=== PATIENT | female | born 1945 | race Caucasian/White ===

== ENCOUNTER 2018-07-29 15:19 | Inpatient (IN) | payer MEDICARE, BC ==
[2018-07-29 16:18] LABS: HEMATOCRIT 29.4 % (41.0-60); HEMOGLOBIN 9.7 gm/dL (12-16); INR 1.19 (0.5-1.4); LYMPHOCYTE ABSOLUTE 0.1 Th/cmm (1.5-3.0); MEAN CELL VOLUME 94.9 fl (81-100); MEAN CORPUSCULAR HEMOGLOBIN 31.2 pg (27.0-31.0); MEAN CORPUSCULAR HGB CONC 32.9 pg (28.0-36.0); MEAN PLATELET VOLUME 8.4 fl; MONOCYTE ABSOLUTE 0.2 Th/cmm (0.3-1.0); NEUTROPHILE ABSOLUTE 9.5 Th/cmm (1.8-8.0); PLATELET COUNT 51 Th/cmm (150-400); PROTHROMBIN TIME (TEST) 12.3 SECONDS (9.5-11.5); RED BLOOD COUNT 3.09 Mil/cmm (3.80-5.20); RED CELL DISTRIBUTION WIDTH 17.8 % (11.5-20.0); WHITE BLOOD COUNT 9.8 Th/cmm (4.8-10.8)
[2018-07-29 16:19] LABS: % EOSINOPHILS 0.4 % (0.0-5.0); % LYMPHOCYTES 1.5 % (20.0-50.0); % MONOCYTES 1.6 % (2.0-10.0); % NEUTROPHILS 96.5 % (40.0-80.0)
--- NOTE | 2018-07-29 16:23 | ED Physician Chart ---
ED Chief Complaint/HPI - Patient Information Date Seen:: 07/29/18 Time Seen:: 15:26 Chief Complaint:: low blood pressure History of Present Illness:: this is a chronically ill 72 yr old female from home bib her daughter for an evaluation of her low blood pressure. she currently going to the [facility] for chemotherapy. Allergies:: Allergies Allergy/AdvReac Type Severity Reaction Status Date / Time No Known Allergies Allergy Verified 07/29/18 15:33 Vitals:: Vital Signs - 8 hr 07/29/18 07/29/18 15:34 16:15 Temp 96.6 F 96.3 F HR 92 95 RR 17 19 BP 97/48 97/56 O2 Sat % 97 98 Historian:: Patient, Family Member (daughter) Review:: Nurse's Note Reviewed, Transfer documents Reviewed ED Review of Systems - Review of Systems General/Constitutional: No fever, No chills, Weight loss, Weakness, No diaphoresis, No edema, No loss of appetite Skin: No skin lesions, No rash, No bruising Head: No headache, No light-headedness Eyes: No loss of vision, No pain, No diplopia ENT: No earache, No nasal drainage, No sore throat, No tinnitus Neck: No neck pain, No swelling, No thyromegaly, No stiffness, No mass noted Cardio Vascular: No chest pain, No palpitations, No PND, No orthopnea, No edema Pulmonary: No SOB, No cough, No sputum, No wheezing GI: No nausea, No vomiting, No diarrhea, No pain, No melena, No hematochezia, No constipation, No hematemesis G/U: No dysuria, No frequency, No hematuria Musculoskeletal: No bone or joint pain, Back pain, No muscle pain, Other (left lower leg edema) Endocrine: No polyuria, No polydipsia Psychiatric: No prior psych history, No depression, No anxiety, No suicidal ideation Hematopoietic: No bruising, No lymphadenopathy Allergic/Immuno: No urticaria, No angioedema Neurological: No syncope, No focal symptoms, No weakness, No paresthesia, No headache, No seizure, No dizziness, No confusion, No vertigo ED Past Medical History - Past Medical History Obtainable: Yes Past Medical History: HTN, Other (multiple erin cancer) Family History: None Social History: Non Smoker, No Alcohol, No Drug Use, Surgical History: other (tonsils, fibroid surgery and pic line placement) Family Medical History - Family Member Mother History Unknown: Yes ED Physical Exam - Physical Examination General/Constitutional: Awake, Well-developed, well-nourished, Alert, No distress, GCS 15, Non-toxic appearing, Ambulatory Other Gen/Cons comments:: lethargic and weak looking Head: Atraumatic Eyes: Lids, conjuctiva normal, PERRL, EOMI Skin: Nl inspection, No rash, No skin lesions, No ecchymosis, Well hydrated, No lymphadenopathy ENMT: External ears, nose nl, Nasal exam nl, Lips, teeth, gums nl Neck: Nontender, Full ROM w/o pain, No JVD, No nuchal rigidity, No bruit, No mass, No stridor Respiratory: Nl effort/Exclusion, Clear to Auscultation, No Wheeze/Rhonchi/Rales Cardio Vascular: RRR, No murmur, gallop, rubs, NL S1 S2 Other Cardio Vascular comments:: medication line in the anterior chest wall. GI: No tenderness/rebounding/guarding, No organomegaly, No hernia, Normal BS's, Nondistended, No mass/bruits, No McBurney tenderness : No CVA tenderness Extremities: No tenderness or effusion, Full ROM, normal strength in all extremities, No edema, Normal digits & nails Neuro/Psych: Alert/oriented, DTR's symmetric, Normal sensory exam, Normal motor strength, Judgement/insight normal, Mood normal, Normal gait, No focal deficits Misc: Normal back, No paraspinal tenderness ED Labs/Radiology/EKG Results - Lab Results Results: Abnormal Lab Results 07/29/18 07/29/18 07/29/18 15:45 15:45 15:45 WBC 9.8 RBC 3.09 L Hgb 9.7 L Hct 29.4 L MCV 94.9 MCH 31.2 H MCHC Differential 32.9 RDW 17.8 Plt Count 51 L MPV 8.4 Neutrophils % 96.5 H Lymphocytes % 1.5 L Monocytes % 1.6 L Eosinophils % 0.4 Basophils % 0.0 PT 12.3 H INR 1.19 PTT (Actin FS) 30.1 Sodium Potassium Chloride Carbon Dioxide Anion Gap BUN Creatinine Est GFR ( Amer) Est GFR (Non-Af Amer) BUN/Creatinine Ratio Glucose Calcium Total Bilirubin AST ALT Alkaline Phosphatase Total Protein Albumin Globulin Albumin/Globulin Ratio Triglycerides 246 H Cholesterol 173 LDL Cholesterol Direct 60 L HDL Cholesterol 39 07/29/18 15:45 WBC RBC Hgb Hct MCV MCH MCHC Differential RDW Plt Count MPV Neutrophils % Lymphocytes % Monocytes % Eosinophils % Basophils % PT INR PTT (Actin FS) Sodium 139 Potassium 3.6 Chloride 109 H Carbon Dioxide 14.0 L Anion Gap 19.6 H BUN 66 H Creatinine 3.4 H Est GFR ( Amer) 17.2 Est GFR (Non-Af Amer) 14.2 BUN/Creatinine Ratio 19.4 Glucose 130 H Calcium 7.9 L Total Bilirubin 0.3 AST 28 ALT 7 Alkaline Phosphatase 105 H Total Protein 7.3 Albumin 2.7 L Globulin 4.6 Albumin/Globulin Ratio 0.6 L Triglycerides Cholesterol LDL Cholesterol Direct HDL Cholesterol - Radiology Results Results: chest x-ray = two area of masses noted. - EKG Interpretations EKG Time:: 15:34 Rate & Rhythm: rate =86, sinus Middleton: left axis ED Assessment - Assessment General Assessment: hypotension ED Septic Shock - . Is Septic Shock (SBP<90, OR Lactate>4 mmol\L) present?: No - <6hrs of presentation: Vital Signs: Vital Signs - 8 hr 07/29/18 07/29/18 15:34 16:15 Temp 96.6 F 96.3 F HR 92 95 RR 17 19 BP 97/48 97/56 O2 Sat % 97 98 ED Reassessment (Disposition) - Reassessment Reassessment Condition:: Unchanged - Diagnosis Diagnosis:: hypotension renal failure - Aftercare/Follow up Instructions Notes:: critical care 62 min - Patient Disposition Discharge/Transfer:: Acute Care w/in this hosp Admitted to:: Med/Surg Admitting Medical Physician:: John Paul Isaac Condition at Disposition:: Critical
[2018-07-29 16:26] LABS: ALB/GLOB RATIO 0.6 (1.0-1.8); ALBUMIN 2.7 gm/dL (3.7-5.3); ANION GAP 19.6 (7.0-16.0); BILIRUBIN,TOTAL 0.3 mg/dL (0.3-1.0); CALCIUM SERUM 7.9 mg/dL (8.6-10.3); CREATININE - SERUM 3.4 mg/dL (0.6-1.2); GFR AFRICAN-AMERICAN 17.2 ml/min (>90); GFR NON AFRICAN-AMERICAN 14.2 ml/min; POTASSIUM SERUM 3.6 mEq/L (3.5-5.1); TOTAL PROTEIN,SERUM 7.3 gm/dL (6.0-8.3)
[2018-07-29 16:28] LABS: CHOLESTEROL 173 mg/dL (<200); HDL -HIGH DENSITY LIPOPROTEIN 39 mg/dL (23-92); TRIGLYCERIDES 246 mg/dL (<150)
[2018-07-29] MEDS ORDERED: Sodium Chloride 0.9% 1,000 ML IV ONE (16:33)
[2018-07-29] MEDS ORDERED: Potassium Chloride Elixir 20 mEq /15 mL UDC PO ONE (17:21)
[2018-07-29] MEDS ORDERED: Potassium Chloride 20 mEq ER Tab PO ONE (17:24)
[2018-07-29] MEDS ORDERED: Potassium Chloride Elixir 20 mEq /15 mL UDC ONE (17:26)
[2018-07-29 18:57] LABS: pH 7.374 (7.35-7.45)
[2018-07-29 18:58] LABS: PaCO2 19.2 mmHg (35.0-45.0); PaO2 106.9 mmHg (80.0-100.0)
[2018-07-29 18:59] LABS: ALLEN TEST Positive; sO2c 97.9 % (92.0-100.0)
[2018-07-29] MEDS ORDERED: Norepinephrine 4 mg/4mL Vial IV ONE (20:03)
[2018-07-29] MEDS ORDERED: ONDANSETRON 8 MG PO PRN (21:59)
[2018-07-29] MEDS ORDERED: [UNRECOGNIZED DRUG - OTHER] MM PRN (21:59)
[2018-07-29] MEDS ORDERED: Hydrocodone/APAP 5mg/325mg Tab PO PRN (21:59)
[2018-07-30 06:38] LABS: HEMATOCRIT 32.9 % (41.0-60); HEMOGLOBIN 10.6 gm/dL (12-16); MEAN CELL VOLUME 96.3 fl (81-100); MEAN CORPUSCULAR HEMOGLOBIN 30.9 pg (27.0-31.0); MEAN CORPUSCULAR HGB CONC 32.1 pg (28.0-36.0); MEAN PLATELET VOLUME 8.7 fl; PLATELET COUNT 50 Th/cmm (150-400); RED BLOOD COUNT 3.42 Mil/cmm (3.80-5.20); RED CELL DISTRIBUTION WIDTH 18.6 % (11.5-20.0); WHITE BLOOD COUNT 11.4 Th/cmm (4.8-10.8)
[2018-07-30 06:51] LABS: ALB/GLOB RATIO 0.6 (1.0-1.8); ALBUMIN 2.5 gm/dL (3.7-5.3); ANION GAP 20.5 (7.0-16.0); BILIRUBIN,TOTAL 0.3 mg/dL (0.3-1.0); CALCIUM SERUM 7.6 mg/dL (8.6-10.3); CARBON DIOXIDE 10.2 mEq/L (21.0-31.0); CREATININE - SERUM 3.2 mg/dL (0.6-1.2); GFR AFRICAN-AMERICAN 18.4 ml/min (>90); GFR NON AFRICAN-AMERICAN 15.2 ml/min; POTASSIUM SERUM 3.7 mEq/L (3.5-5.1); TOTAL PROTEIN,SERUM 6.9 gm/dL (6.0-8.3)
[2018-07-30 07:52] LABS: BAND NEUTROPHILE 5 % (0-10); LYMPHOCYTE 3 % (20-50); MONOCYTE 4 % (2-10); NEUTROPHILS 88 % (40-80); PLATELET ESTIMATE DECREASED PLATELETS (NORMAL); POIKILOCYTOSIS 1+
--- NOTE | 2018-07-30 08:27 | Diagnostic Imaging Report ---
Portable chest x-ray HISTORY: Pain The overall heart size is difficult to assess with portable technique in a poor inspiration. Accentuation of the interstitial lung markings. However, no focal processes are seen. A vascular catheter tip is in the region of the superior vena cava. Diffuse degenerative changes seen throughout the spine. IMPRESSION: 1. Accentuation of the interstitial lung markings. Findings may be chronic. No definite acute focal processes are seen. 2. Vascular catheter placement as noted above
[2018-07-30] MEDS ORDERED: FEBUXOSTAT 80 MG PO SCH (09:00)
[2018-07-30] MEDS ORDERED: ALPHA LIPOIC ACID 200 MG PO SCH (09:00)
[2018-07-30] MEDS ORDERED: Non-Formulary Item 1 EA (Omeprazole [Omeprazole] 40 MG) PO SCH (09:00)
[2018-07-30] MEDS ORDERED: DULOXETINE HYDROCHLORIDE PO SCH (09:00)
[2018-07-30] MEDS ORDERED: CYANOCOBALAMIN 1000 MCG PO SCH (09:00)
[2018-07-30] MEDS ORDERED: FOLIC ACID 1 MG PO SCH (09:00)
[2018-07-30] MEDS ORDERED: ACYCLOVIR 400 MG PO SCH (09:00)
[2018-07-30] MEDS: Pantoprazole 40 mg EC Tab PO SCH (09:14)
[2018-07-30] MEDS: Calcium Carb/Vit D 500 mg/200 U Tab PO SCH ×2 (09:14→16:53)
--- NOTE | 2018-07-30 14:30 | History and Physical ---
History of Present Illness - HPI Chief Complaint: Felling tired and with some confusion HPI: patient stated that she is in Chemotherapy since 2008 and after chemo she fells tired and get diarrhea. She got chemo last and this time she had a lot of diarrhea and felt so bad that came to ER. During ER evaluation was found low BP , dehydrated, elevated troponin, creatinine and BNP. Vital Signs: Last Vital Signs Temp 97.2 F 07/30/18 09:32 Pulse 85 07/30/18 11:32 Resp 16 07/30/18 11:32 BP 122/62 07/30/18 11:32 Pulse Ox 99 07/30/18 11:32 Past Medical History Cardiovascular: Report: No Pertinent Hx Pulmonary: Report: No Pertinent Hx [employer]: Report: No Pertinent Hx GI: Report: No Pertinent Hx Psych: Report: No Pertinent Hx Musculoskeletal: Report: Weakness Rheumatologic: Report: No pertinent Hx Infectious Disease: Report: No Pertinent Hx Renal/: Report: No Pertinent Hx Endocrine: Report: No Pertinent Hx, Other (Patient has PMHX of multiple Myeloma in chemotherapy since 2008) Dermatology: Report: No Pertinent Hx Family Medical History - Family Member Mother History Unknown: Yes Social History Smoke: No Alcohol: None Drugs: None Lives: With Family Domestic Violence: Negative - Medications Home Medications: Home Medication Medication Instructions Recorded Type Acyclovir 400 mg PO BID 03/20/14 History Cyanocobalamin [Vitamin B12] 1,000 mcg PO DAILY 03/20/14 History Duloxetine Hydrochloride [Cymbalta] 60 mg PO DAILY 03/20/14 History Folic Acid [Folic Acid*] 1 mg PO DAILY 03/20/14 History Gabapentin [Gabapentin*] 300 mg PO TID 03/20/14 History Alpha Lipoic Acid 200 mg PO BID 07/29/18 History Calcium Carb/Vit D 500mg/200U 1 tab PO BID 07/29/18 History [Oscal w/Vitamin D] Febuxostat [Uloric] 80 mg PO DAILY 07/29/18 History Hydrocodone/Acetaminophen 1 each PO Q6H PRN 07/29/18 History [Hydrocodone-Acetamin 5-325 mg] Lidocaine/Prilocaine [Lidocaine 1 cre TP PRN PRN 07/29/18 History and Prilocaine 2.5%-2.5%] Metoprolol Succinate [Toprol Xl] 50 mg PO DAILY 07/29/18 History Omeprazole 40 mg PO DAILY 07/29/18 History Ondansetron [Ondansetron Odt] 8 mg PO Q8H PRN 07/29/18 History Potassium/Calcium/Magnes/Manga 1 each PO PRN PRN 07/29/18 History [Emergen-C Electro Mix Packet] Pyridoxine [Vitamin B6] 50 mg PO DAILY 07/29/18 History Saliva Substitute Comb No.10 1 each MM PRN PRN 07/29/18 History [Neutrasal] Sulfamethoxazole/Trimethoprim 1 tab PO BID 07/29/18 History [Sulfamethoxazole and Trimethoprim 800 mg-160 ] - Allergies Allergies/Adverse Reactions: Allergies Allergy/AdvReac Type Severity Reaction Status Date / Time No Known Allergies Allergy Verified 07/29/18 15:33 Review of Systems - Review of Systems Constitutional: Report: Weakness Eyes: Report: Other (Patient has bilateral cataract) ENT: Report: No Significant Respiratory: Report: No Significant Cardiovascular: Report: Orthopnea, Light Headedness Gastrointestinal: Report: Diarrhea Genitourinary: Report: No Significant Musculoskeletal: Report: Other (General muscle weakness.) Skin: Report: Other (Multiple scoriations in all body) Neurological: Report: Weakness Physical Exam - Physical Exam HEENT: Report: Ears Nose Throat within normal limits Neck: Report: Within normal limits Cardiovascular Systems: Report: Regular, Rate and Rhythm Respiratory: Report: Breath Sounds are within normal limits Abdomen: Report: Non-tender to palpation Back: Report: Inspection of back is within normal limits. Extremities: Report: Non-tender to palpation. Skin: Report: Warm, Dry Neuro/Psych: Report: Mood affect is within normal limits - Lab Results All Lab Results last 24 hours: Laboratory Results - last 24 hr 07/29/18 07/29/18 07/29/18 15:45 15:45 15:45 WBC 9.8 RBC 3.09 L Hgb 9.7 L Hct 29.4 L MCV 94.9 MCH 31.2 H MCHC Differential 32.9 RDW 17.8 Plt Count 51 L MPV 8.4 Add Manual Diff Neutrophils % 96.5 H Band Neutrophils % Lymphocytes % 1.5 L Monocytes % 1.6 L Eosinophils % 0.4 Basophils % 0.0 Neutrophils (Manual) Lymphocytes Monocytes Platelet Estimate Poikilocytosis PT 12.3 H INR 1.19 PTT (Actin FS) 30.1 Specimen Source Sample Site pH pCO2 pO2 HCO3 Base Excess O2 Saturation Massimo Test Vent Rate Inspired O2 Tidal Volume PEEP Pressure (ins/psv/peep) Critical Value Sodium Potassium Chloride Carbon Dioxide Anion Gap BUN Creatinine Est GFR ( Amer) Est GFR (Non-Af Amer) BUN/Creatinine Ratio Glucose Whole Bld Lactic Acid Calcium Total Bilirubin AST ALT Alkaline Phosphatase Ammonia Troponin I B-Natriuretic Peptide Total Protein Albumin Globulin Albumin/Globulin Ratio Triglycerides 246 H Cholesterol 173 LDL Cholesterol Direct 60 L HDL Cholesterol 39 TSH 07/29/18 07/29/18 07/29/18 15:45 15:45 15:45 WBC RBC Hgb Hct MCV MCH MCHC Differential RDW Plt Count MPV Add Manual Diff Neutrophils % Band Neutrophils % Lymphocytes % Monocytes % Eosinophils % Basophils % Neutrophils (Manual) Lymphocytes Monocytes Platelet Estimate Poikilocytosis PT INR PTT (Actin FS) Specimen Source Sample Site pH pCO2 pO2 HCO3 Base Excess O2 Saturation Massimo Test Vent Rate Inspired O2 Tidal Volume PEEP Pressure (ins/psv/peep) Critical Value Sodium 139 Potassium 3.6 Chloride 109 H Carbon Dioxide 14.0 L Anion Gap 19.6 H BUN 66 H Creatinine 3.4 H Est GFR ( Amer) 17.2 Est GFR (Non-Af Amer) 14.2 BUN/Creatinine Ratio 19.4 Glucose 130 H Whole Bld Lactic Acid Calcium 7.9 L Total Bilirubin 0.3 AST 28 ALT 7 Alkaline Phosphatase 105 H Ammonia Troponin I 0.25 H* B-Natriuretic Peptide Total Protein 7.3 Albumin 2.7 L Globulin 4.6 Albumin/Globulin Ratio 0.6 L Triglycerides Cholesterol LDL Cholesterol Direct HDL Cholesterol TSH 2.13 07/29/18 07/29/18 07/29/18 15:45 15:45 15:45 WBC RBC Hgb Hct MCV MCH MCHC Differential RDW Plt Count MPV Add Manual Diff Neutrophils % Band Neutrophils % Lymphocytes % Monocytes % Eosinophils % Basophils % Neutrophils (Manual) Lymphocytes Monocytes Platelet Estimate Poikilocytosis PT INR PTT (Actin FS) Specimen Source Sample Site pH pCO2 pO2 HCO3 Base Excess O2 Saturation Massimo Test Vent Rate Inspired O2 Tidal Volume PEEP Pressure (ins/psv/peep) Critical Value Sodium Potassium Chloride Carbon Dioxide Anion Gap BUN Creatinine Est GFR ( Amer) Est GFR (Non-Af Amer) BUN/Creatinine Ratio Glucose Whole Bld Lactic Acid 1.75 Calcium Total Bilirubin AST ALT Alkaline Phosphatase Ammonia 26 Troponin I B-Natriuretic Peptide 816.0 H Total Protein Albumin Globulin Albumin/Globulin Ratio Triglycerides Cholesterol LDL Cholesterol Direct HDL Cholesterol TSH 07/29/18 07/30/18 07/30/18 18:40 06:15 06:15 WBC 11.4 H RBC 3.42 L Hgb 10.6 L Hct 32.9 L MCV 96.3 MCH 30.9 MCHC Differential 32.1 RDW 18.6 Plt Count 50 L MPV 8.7 Add Manual Diff YES Neutrophils % Band Neutrophils % 5 Lymphocytes % Monocytes % Eosinophils % Basophils % Neutrophils (Manual) 88 H Lymphocytes 3 L Monocytes 4 Platelet Estimate DECREASED PLATELETS Poikilocytosis 1+ PT INR PTT (Actin FS) Specimen Source Arterial Sample Site Right Brachial pH 7.374 pCO2 19.2 L* pO2 106.9 H HCO3 11.0 L Base Excess -11.5 L O2 Saturation 97.9 Massimo Test Positive Vent Rate NA Inspired O2 21 Tidal Volume NA PEEP NA Pressure (ins/psv/peep) NA Critical Value JG Sodium 138 Potassium 3.7 Chloride 111 H Carbon Dioxide 10.2 L Anion Gap 20.5 H BUN 71 H Creatinine 3.2 H Est GFR ( Amer) 18.4 Est GFR (Non-Af Amer) 15.2 BUN/Creatinine Ratio 22.2 Glucose 90 Whole Bld Lactic Acid Calcium 7.6 L Total Bilirubin 0.3 AST 28 ALT 7 Alkaline Phosphatase 100 Ammonia Troponin I B-Natriuretic Peptide Total Protein 6.9 Albumin 2.5 L Globulin 4.4 Albumin/Globulin Ratio 0.6 L Triglycerides Cholesterol LDL Cholesterol Direct HDL Cholesterol TSH 07/30/18 06:15 WBC RBC Hgb Hct MCV MCH MCHC Differential RDW Plt Count MPV Add Manual Diff Neutrophils % Band Neutrophils % Lymphocytes % Monocytes % Eosinophils % Basophils % Neutrophils (Manual) Lymphocytes Monocytes Platelet Estimate Poikilocytosis PT INR PTT (Actin FS) Specimen Source Sample Site pH pCO2 pO2 HCO3 Base Excess O2 Saturation Massimo Test Vent Rate Inspired O2 Tidal Volume PEEP Pressure (ins/psv/peep) Critical Value Sodium Potassium Chloride Carbon Dioxide Anion Gap BUN Creatinine Est GFR ( Amer) Est GFR (Non-Af Amer) BUN/Creatinine Ratio Glucose Whole Bld Lactic Acid Calcium Total Bilirubin AST ALT Alkaline Phosphatase Ammonia Troponin I 0.18 H* D B-Natriuretic Peptide Total Protein Albumin Globulin Albumin/Globulin Ratio Triglycerides Cholesterol LDL Cholesterol Direct HDL Cholesterol TSH - Assessment Assessment: Current Active Problems Problem Status Onset LOW BLOOD PRESSURE EPISODE Acute Patient is awake, alert, calm in no acute distress. Dx: Dehydration, Low BP, AKF , CHF, elevated troponins, Multiple Myeloma - Plan Plan: Patient is in IV NS, Levophed, continue with home meds. Consult with Nepho and cardio requested. Will continue to monitor.
--- NOTE | 2018-07-30 15:07 | General Progress Note ---
Subjective - Review of Systems Service Date: 07/30/18 Subjective: Patient is awake and alert still hypotension still loose bowel movement Objective - Results Result Diagrams: 07/30/18 06:15 07/30/18 06:15 Recent Labs: Laboratory Last Values WBC 11.4 Th/cmm (4.8-10.8) H 07/30/18 06:15 RBC 3.42 Mil/cmm (3.80-5.20) L 07/30/18 06:15 Hgb 10.6 gm/dL (12-16) L 07/30/18 06:15 Hct 32.9 % (41.0-60) L 07/30/18 06:15 MCV 96.3 fl (81-100) 07/30/18 06:15 MCH 30.9 pg (27.0-31.0) 07/30/18 06:15 MCHC Differential 32.1 pg (28.0-36.0) 07/30/18 06:15 RDW 18.6 % (11.5-20.0) 07/30/18 06:15 Plt Count 50 Th/cmm (150-400) L 07/30/18 06:15 MPV 8.7 fl 07/30/18 06:15 Add Manual Diff YES 07/30/18 06:15 Neutrophils % 96.5 % (40.0-80.0) H 07/29/18 15:45 Band Neutrophils % 5 % (0-10) 07/30/18 06:15 Lymphocytes % 1.5 % (20.0-50.0) L 07/29/18 15:45 Monocytes % 1.6 % (2.0-10.0) L 07/29/18 15:45 Eosinophils % 0.4 % (0.0-5.0) 07/29/18 15:45 Basophils % 0.0 % (0.0-2.0) 07/29/18 15:45 Neutrophils (Manual) 88 % (40-80) H 07/30/18 06:15 Lymphocytes 3 % (20-50) L 07/30/18 06:15 Monocytes 4 % (2-10) 07/30/18 06:15 Platelet Estimate DECREASED PLATELETS (NORMAL) 07/30/18 06:15 Poikilocytosis 1+ 07/30/18 06:15 PT 12.3 SECONDS (9.5-11.5) H 07/29/18 15:45 INR 1.19 (0.5-1.4) 07/29/18 15:45 PTT (Actin FS) 30.1 SECONDS (26.0-38.0) 07/29/18 15:45 Specimen Source Arterial 07/29/18 18:40 Sample Site Right Brachial 07/29/18 18:40 pH 7.374 (7.35-7.45) 07/29/18 18:40 pCO2 19.2 mmHg (35.0-45.0) L* 07/29/18 18:40 pO2 106.9 mmHg (80.0-100.0) H 07/29/18 18:40 HCO3 11.0 mEq/L (20.0-26.0) L 07/29/18 18:40 Base Excess -11.5 mEq/L (-3.0-3.0) L 07/29/18 18:40 O2 Saturation 97.9 % (92.0-100.0) 07/29/18 18:40 Massimo Test Positive 07/29/18 18:40 Vent Rate NA 07/29/18 18:40 Inspired O2 21 07/29/18 18:40 Tidal Volume NA 07/29/18 18:40 PEEP NA 07/29/18 18:40 Pressure (ins/psv/peep) NA 07/29/18 18:40 Critical Value JG 07/29/18 18:40 Sodium 138 mEq/L (136-145) 07/30/18 06:15 Potassium 3.7 mEq/L (3.5-5.1) 07/30/18 06:15 Chloride 111 mEq/L (98-107) H 07/30/18 06:15 Carbon Dioxide 10.2 mEq/L (21.0-31.0) L 07/30/18 06:15 Anion Gap 20.5 (7.0-16.0) H 07/30/18 06:15 BUN 71 mg/dL (7-25) H 07/30/18 06:15 Creatinine 3.2 mg/dL (0.6-1.2) H 07/30/18 06:15 Est GFR ( Amer) 18.4 ml/min (>90) 07/30/18 06:15 Est GFR (Non-Af Amer) 15.2 ml/min 07/30/18 06:15 BUN/Creatinine Ratio 22.2 07/30/18 06:15 Glucose 90 mg/dL (70-105) 07/30/18 06:15 Whole Bld Lactic Acid 1.75 mmol/L (0.60-1.99) 07/29/18 15:45 Calcium 7.6 mg/dL (8.6-10.3) L 07/30/18 06:15 Total Bilirubin 0.3 mg/dL (0.3-1.0) 07/30/18 06:15 AST 28 U/L (13-39) 07/30/18 06:15 ALT 7 U/L (7-52) 07/30/18 06:15 Alkaline Phosphatase 100 U/L (34-104) 07/30/18 06:15 Ammonia 26 umol/L (16-53) 07/29/18 15:45 Troponin I 0.18 ng/mL (0.01-0.05) H* D 07/30/18 06:15 B-Natriuretic Peptide 816.0 pg/mL (5.0-100.0) H 07/29/18 15:45 Total Protein 6.9 gm/dL (6.0-8.3) 07/30/18 06:15 Albumin 2.5 gm/dL (3.7-5.3) L 07/30/18 06:15 Globulin 4.4 gm/dL 07/30/18 06:15 Albumin/Globulin Ratio 0.6 (1.0-1.8) L 07/30/18 06:15 Triglycerides 246 mg/dL (<150) H 07/29/18 15:45 Cholesterol 173 mg/dL (<200) 07/29/18 15:45 LDL Cholesterol Direct 60 mg/dL (75-193) L 07/29/18 15:45 HDL Cholesterol 39 mg/dL (23-92) 07/29/18 15:45 TSH 2.13 uIU/ml (0.34-5.60) 07/29/18 15:45 - Physical Exam Vitals and I&O: Vital Signs Temp 98.3 F 07/30/18 12:00 Pulse 104 07/30/18 13:00 Resp 18 07/30/18 13:00 BP 121/71 07/30/18 13:00 Pulse Ox 99 07/30/18 13:00 Intake & Output 07/29/18 07/30/18 07/30/18 18:59 06:59 18:59 Weight (lbs) 74.389 kg Other: Stool Characteristics Liquid Weight Source Patient stated Active Medications: Current Medications Acetaminophen/Hydrocodone Bitart ([place] 5mg/325mg) 1 tab PO Q6H PRN PRN Reason: MODERATE PAIN Stop: 09/27/18 21:58 Acyclovir (Zovirax) 400 mg PO BID [facility] Stop: 09/28/18 08:59 Last Admin: 07/30/18 09:13 Dose: 400 mg Calcium/Vitamin D (Oscal W/Vitamin D) 1 tab PO BID [facility] Stop: 09/28/18 08:59 Last Admin: 07/30/18 09:14 Dose: 1 tab Cyanocobalamin (Vitamin B12) 1,000 mcg PO DAILY SWAP[facility] Stop: 09/28/18 08:59 Last Admin: 07/30/18 09:14 Dose: 1,000 mcg Duloxetine HCl (Cymbalta) 60 mg PO DAILY [facility] Stop: 09/28/18 08:59 Last Admin: 07/30/18 09:14 Dose: 60 mg Folic Acid (Folate) 1 mg PO DAILY [facility] Stop: 09/28/18 08:59 Last Admin: 07/30/18 09:14 Dose: 1 mg Gabapentin (Neurontin) 300 mg PO DAILY [facility] Stop: 09/28/18 08:59 Last Admin: 07/30/18 09:14 Dose: 300 mg Norepinephrine Bitartrate 4 mg (/ Dextrose) 254 mls @ 0 mls/hr IV TITR PRN; Protocol PRN Reason: BP MAINTENANCE (PER PROTOCOL) Stop: 09/27/18 20:01 Last Admin: 07/29/18 20:19 Dose: 5 mcg/min, 19.05 mls/hr Metoprolol Succinate (Toprol Xl) 50 mg PO DAILY [facility] Stop: 09/28/18 08:59 Last Admin: 07/30/18 09:14 Dose: Not Given Ondansetron HCl (Zofran Odt) 8 mg PO Q8H PRN PRN Reason: Nausea / Vomiting Stop: 09/27/18 22:50 Pantoprazole Sodium (Protonix) 40 mg PO DAILY [facility] Stop: 09/28/18 08:59 Last Admin: 07/30/18 09:14 Dose: 40 mg Pyridoxine HCl (Vitamin B6) 50 mg PO DAILY [facility] Stop: 09/28/18 08:59 Last Admin: 07/30/18 09:14 Dose: 50 mg General: Alert, Oriented x3, No acute distress HEENT: Mucous membr. moist/pink Neck: Supple, JVD, +2 carotid pulse wo bruit (flat) Cardiovascular: Regular rate, Normal S1, Normal S2, Systolic murmurs, Other ( tachycardia) Lungs: Clear to auscultation, Normal air movement Abdomen: Bowel sounds, Soft, Other (no organomegaly) Extremities: Edema Neurological: Normal gait, Strength at 5/5 X4 ext, Cranial nerves 3-12 NL, Reflexes 2+ Assessment/Plan - Problem List Patient Problems: All Active Problems LOW BLOOD PRESSURE EPISODE (Acute) - Assessment Assessment: Hypotension on Levophed Gastroenteritis secondary to chemotherapy Multiple myeloma Hypertension And deficiency anemia Acute renal failure - Plan Plan: Continue present management weaned off Levophed Echocardiogram for left ventricular function renal evaluation for acute renal failure Nutritional Asmnt/Malnutr-PDOC - Dietary Evaluation Malnutrition Findings (Please click <Entered> for more info): Nutritional Asmnt/Malnutrition Start: 07/30/18 09: 36 Text: Status: Complete Freq: Protocol: Document 07/30/18 09:36 [email or web address] (Rec: 07/30/18 09:45 [email or web address] [id number]) Nutritional Asmnt/Malnutrition Patient General Information Nutritional Screening High Risk Diagnosis Dehydration Pertinent Medical Hx/Surgical Hx GUILLIAM BARRE SYNDROME, OSTEONECROSIS, MULTIPLE MYELOMA Subjective Information 3+ edema. Tolerating current diet order Current Diet Order/ Nutrition Support Regular Patient / S.O Not Indicated Pertinent Medications Oscal W/D, Vitamin B12, folate , zofran, protonix, vitamin B6 Pertinent Labs (07/29) TAG 246 (07/30) BUN 71, Cr 3.2, GFR 15, Ca 7.6, BNP 816, Albumin 2.5 Nutritional Hx/Data Height 1.55 m Height (Calculated Centimeters) 154.9 Current Weight (lbs) 74.389 kg Weight (Calculated Kilograms) 74.4 Weight (Calculated Grams) 79156.1 Willard Body Weight 105 % Willard Body Weight 156 Body Mass Index (BMI) 30.9 Recent Weight Change No Weight Status Obese GI Symptoms GI Symptoms None Last BM none noted since admission Difficult in: None Food Allergies No Cultural/Ethnic/Confucianism Belief none indicated Usual diet at home regular Skin Integrity/Comment: not indicated, no H&P yet or lora score Estimated Nutritional Goals BEE in Kcals: Adj wt of IBW Calories/Kcals/Kg 54.4kg Adj wt Kcals Calculated ~2926-1907 kcal/day (27-32 kcal/kg) Protein: Adj wt of IBW Protein g/k.1-1.3 gm/kg Protein Calculated ~60-70 gm/day Fluid: ml ~3644-1417 ml/day (1 ml/kcal) Nutritional Problem 1. Problem Problem No nutrition diagnosis at this time Intervention/Recommendation Comments 1. Continue regular diet as tolerated by patient. 2. If oral intake is consistently <75% of meals, add Ensure TID. Expected Outcomes/Goals Expected Outcomes/Goals Oral intake >75% of meals, weight stable or trend toward IBW, nutrition related labs WNL F/U MR 08/02-08/04
[2018-07-30] MEDS ORDERED: Diphenoxylate/Atropine 2.5mg Tab PO PRN (16:35)
--- NOTE | 2018-07-30 23:02 | Consultation ---
DATE OF CONSULTATION: 07/30/2018 HISTORY AND PHYSICAL: This is a 72-year-old female patient who has multiple myeloma. The patient is getting chemotherapy at [facility]. The patient has been getting diarrhea whenever she gets chemotherapy. On this occasion, it did not get reverse and at this time, the patient came to the Emergency Room. The patient was hypotensive and the patient was put on Levophed and admitted to ICU. Following this, cardiac consult is requested. PAST MEDICAL HISTORY: 1. Diarrhea from chemotherapy. 2. Multiple myeloma. 3. Osteoporosis. 4. Hypertension. 5. Anemia. FAMILY HISTORY: Unremarkable. SOCIAL HISTORY: No history of smoking, alcohol abuse. ALLERGIES: None. PHYSICAL EXAMINATION: VITAL SIGNS: Blood pressure 92 systolic, on Levophed, pulse 90, and respirations 28. HEAD: Normocephalic. No lumps or bumps. EYES: Pupils equal, reactive to light. Fundi show AV nicking, sclerae white, conjunctivae pink. NECK: Carotid 2+. Normal upstroke. JVD flat. Thyroid not palpable. Lymph nodes not palpable. CHEST: Shows increased AP diameter. No kyphosis, scoliosis. LUNGS: Bilateral bronchovesicular breath sounds. HEART: PMI fifth intercostal space with lateral to midclavicular line. S1, S2, S3, S4, sinus tachycardia. ABDOMEN: Soft. Liver and spleen not palpable. No organomegaly. Bowel sounds active. NEUROLOGIC: No focal neurological deficit. EXTREMITIES: Peripheral pulses 2+. No pedal edema. CLINICAL IMPRESSION: Hypotension, probably secondary to severe diarrhea, on Levophed, iron deficiency anemia, multiple myeloma, acute renal failure, hypertension, and osteoporosis. PLAN: The patient to continue on IV fluids and Levophed. Also get an echocardiogram for left ventricular function and monitor the patient in Intensive Care Unit and slowly wean off the Levophed. JOB# [id number]
[2018-07-31 06:11] LABS: HEMATOCRIT 29.2 % (41.0-60); HEMOGLOBIN 9.8 gm/dL (12-16); LYMPHOCYTE ABSOLUTE 0.2 Th/cmm (1.5-3.0); MEAN CELL VOLUME 94.5 fl (81-100); MEAN CORPUSCULAR HEMOGLOBIN 31.6 pg (27.0-31.0); MEAN CORPUSCULAR HGB CONC 33.4 pg (28.0-36.0); MONOCYTE ABSOLUTE 0.3 Th/cmm (0.3-1.0); NEUTROPHILE ABSOLUTE 8.5 Th/cmm (1.8-8.0); PLATELET COUNT 37 Th/cmm (150-400); RED BLOOD COUNT 3.09 Mil/cmm (3.80-5.20); RED CELL DISTRIBUTION WIDTH 17.7 % (11.5-20.0)
[2018-07-31 06:31] LABS: ALB/GLOB RATIO 0.6 (1.0-1.8); ALBUMIN 2.4 gm/dL (3.7-5.3); BILIRUBIN,TOTAL 0.3 mg/dL (0.3-1.0); CALCIUM SERUM 7.1 mg/dL (8.6-10.3); CREATININE - SERUM 2.8 mg/dL (0.6-1.2); GFR AFRICAN-AMERICAN 21.5 ml/min (>90); GFR NON AFRICAN-AMERICAN 17.8 ml/min; TOTAL PROTEIN,SERUM 6.3 gm/dL (6.0-8.3)
[2018-07-31] MEDS: Pantoprazole 40 mg EC Tab PO SCH (08:35)
[2018-07-31] MEDS: Calcium Carb/Vit D 500 mg/200 U Tab PO SCH ×2 (08:35→17:50)
[2018-07-31] MEDS: Potassium Chloride 20 mEq ER Tab PO SCH ×2 (08:36→17:50)
[2018-07-31 08:47] LABS: BAND NEUTROPHILE 9 % (0-10); LYMPHOCYTE 4 % (20-50); MONOCYTE 7 % (2-10); NEUTROPHILS 80 % (40-80); PLATELET ESTIMATE DECREASED PLATELETS (NORMAL)
--- NOTE | 2018-07-31 11:33 | General Progress Note ---
Subjective - Review of Systems Service Date: 07/31/18 Subjective: I am better Objective - Results Result Diagrams: 07/31/18 06:00 07/31/18 06:00 Recent Labs: Laboratory Last Values WBC 9.0 Th/cmm (4.8-10.8) D 07/31/18 06:00 RBC 3.09 Mil/cmm (3.80-5.20) L 07/31/18 06:00 Hgb 9.8 gm/dL (12-16) L 07/31/18 06:00 Hct 29.2 % (41.0-60) L 07/31/18 06:00 MCV 94.5 fl (81-100) 07/31/18 06:00 MCH 31.6 pg (27.0-31.0) H 07/31/18 06:00 MCHC Differential 33.4 pg (28.0-36.0) 07/31/18 06:00 RDW 17.7 % (11.5-20.0) 07/31/18 06:00 Plt Count 37 Th/cmm (150-400) L 07/31/18 06:00 MPV 8.0 fl 07/31/18 06:00 Add Manual Diff YES 07/31/18 06:00 Neutrophils % 96.5 % (40.0-80.0) H 07/29/18 15:45 Band Neutrophils % 9 % (0-10) 07/31/18 06:00 Lymphocytes % 1.5 % (20.0-50.0) L 07/29/18 15:45 Monocytes % 1.6 % (2.0-10.0) L 07/29/18 15:45 Eosinophils % 0.4 % (0.0-5.0) 07/29/18 15:45 Basophils % 0.0 % (0.0-2.0) 07/29/18 15:45 Neutrophils (Manual) 80 % (40-80) 07/31/18 06:00 Lymphocytes 4 % (20-50) L 07/31/18 06:00 Monocytes 7 % (2-10) 07/31/18 06:00 Platelet Estimate DECREASED PLATELETS (NORMAL) 07/31/18 06:00 Poikilocytosis 1+ 07/30/18 06:15 PT 12.3 SECONDS (9.5-11.5) H 07/29/18 15:45 INR 1.19 (0.5-1.4) 07/29/18 15:45 PTT (Actin FS) 30.1 SECONDS (26.0-38.0) 07/29/18 15:45 Specimen Source Arterial 07/29/18 18:40 Sample Site Right Brachial 07/29/18 18:40 pH 7.374 (7.35-7.45) 07/29/18 18:40 pCO2 19.2 mmHg (35.0-45.0) L* 07/29/18 18:40 pO2 106.9 mmHg (80.0-100.0) H 07/29/18 18:40 HCO3 11.0 mEq/L (20.0-26.0) L 07/29/18 18:40 Base Excess -11.5 mEq/L (-3.0-3.0) L 07/29/18 18:40 O2 Saturation 97.9 % (92.0-100.0) 07/29/18 18:40 Massimo Test Positive 07/29/18 18:40 Vent Rate NA 07/29/18 18:40 Inspired O2 21 07/29/18 18:40 Tidal Volume NA 07/29/18 18:40 PEEP NA 07/29/18 18:40 Pressure (ins/psv/peep) NA 07/29/18 18:40 Critical Value JG 07/29/18 18:40 Sodium 138 mEq/L (136-145) 07/31/18 06:00 Potassium 3.0 mEq/L (3.5-5.1) L 07/31/18 06:00 Chloride 113 mEq/L (98-107) H 07/31/18 06:00 Carbon Dioxide 13.0 mEq/L (21.0-31.0) L 07/31/18 06:00 Anion Gap 15.0 (7.0-16.0) 07/31/18 06:00 BUN 71 mg/dL (7-25) H 07/31/18 06:00 Creatinine 2.8 mg/dL (0.6-1.2) H 07/31/18 06:00 Est GFR ( Amer) 21.5 ml/min (>90) 07/31/18 06:00 Est GFR (Non-Af Amer) 17.8 ml/min 07/31/18 06:00 BUN/Creatinine Ratio 25.4 07/31/18 06:00 Glucose 74 mg/dL (70-105) 07/31/18 06:00 Whole Bld Lactic Acid 1.75 mmol/L (0.60-1.99) 07/29/18 15:45 Calcium 7.1 mg/dL (8.6-10.3) L 07/31/18 06:00 Total Bilirubin 0.3 mg/dL (0.3-1.0) 07/31/18 06:00 AST 24 U/L (13-39) 07/31/18 06:00 ALT 7 U/L (7-52) 07/31/18 06:00 Alkaline Phosphatase 89 U/L (34-104) 07/31/18 06:00 Ammonia 26 umol/L (16-53) 07/29/18 15:45 Troponin I 0.19 ng/mL (0.01-0.05) H* 07/31/18 06:00 B-Natriuretic Peptide 322.0 pg/mL (5.0-100.0) H 07/31/18 06:00 Total Protein 6.3 gm/dL (6.0-8.3) 07/31/18 06:00 Albumin 2.4 gm/dL (3.7-5.3) L 07/31/18 06:00 Globulin 3.9 gm/dL 07/31/18 06:00 Albumin/Globulin Ratio 0.6 (1.0-1.8) L 07/31/18 06:00 Triglycerides 246 mg/dL (<150) H 07/29/18 15:45 Cholesterol 173 mg/dL (<200) 07/29/18 15:45 LDL Cholesterol Direct 60 mg/dL (75-193) L 07/29/18 15:45 HDL Cholesterol 39 mg/dL (23-92) 07/29/18 15:45 TSH 2.13 uIU/ml (0.34-5.60) 07/29/18 15:45 - Physical Exam Vitals and I&O: Vital Signs Temp 98.2 F 07/31/18 08:00 Pulse 89 07/31/18 09:15 Resp 20 07/31/18 09:00 BP 100/64 07/31/18 09:15 Pulse Ox 98 07/31/18 09:00 Intake & Output 07/30/18 07/31/18 07/31/18 18:59 06:59 18:59 Intake Total 337.909 11.43 Balance 337.909 11.43 Weight (lbs) 68.447 kg Intake: Intake, IV Amount 287.909 11.43 Norepinephrine 4 mg In 287.909 11.43 Dextrose 5% 250 ml @ Titrate IV TITR PRN Rx#: [id number] Oral 50 Other: # Voids 2 # Bowel Movements 1 Stool Characteristics Liquid Liquid Liquid Weight Source Bedscale Active Medications: Current Medications Acetaminophen/Hydrocodone Bitart ([place] 5mg/325mg) 1 tab PO Q6H PRN PRN Reason: MODERATE PAIN Stop: 09/27/18 21:58 Acyclovir (Zovirax) 400 mg PO BID [facility] Stop: 09/28/18 08:59 Last Admin: 07/31/18 08:35 Dose: 400 mg Calcium/Vitamin D (Oscal W/Vitamin D) 1 tab PO BID [facility] Stop: 09/28/18 08:59 Last Admin: 07/31/18 08:35 Dose: 1 tab Cyanocobalamin (Vitamin B12) 1,000 mcg PO DAILY [facility] Stop: 09/28/18 08:59 Last Admin: 07/31/18 08:35 Dose: 1,000 mcg Diphenoxylate HCl/Atropine (Lomotil) 2 tab PO QID PRN PRN Reason: Diarrhea Stop: 09/28/18 16:34 Last Admin: 07/30/18 16:52 Dose: 2 tab Duloxetine HCl (Cymbalta) 60 mg PO DAILY [facility] Stop: 09/28/18 08:59 Last Admin: 07/31/18 08:35 Dose: 60 mg Folic Acid (Folate) 1 mg PO DAILY [facility] Stop: 09/28/18 08:59 Last Admin: 07/31/18 08:35 Dose: 1 mg Gabapentin (Neurontin) 300 mg PO DAILY [facility] Stop: 09/28/18 08:59 Last Admin: 07/31/18 08:36 Dose: 300 mg Norepinephrine Bitartrate 4 mg (/ Dextrose) 254 mls @ 0 mls/hr IV TITR PRN; Protocol PRN Reason: BP MAINTENANCE (PER PROTOCOL) Stop: 09/27/18 20:01 Last Titration: 07/31/18 09:00 Dose: 0 mcg/min, 0 mls/hr Metoprolol Succinate (Toprol Xl) 50 mg PO DAILY [facility] Stop: 09/28/18 08:59 Last Admin: 07/31/18 08:36 Dose: Not Given Ondansetron HCl (Zofran Odt) 8 mg PO Q8H PRN PRN Reason: Nausea / Vomiting Stop: 09/27/18 22:50 Pantoprazole Sodium (Protonix) 40 mg PO DAILY [facility] Stop: 09/28/18 08:59 Last Admin: 07/31/18 08:35 Dose: 40 mg Potassium Chloride (Klor-Con) 20 meq PO BID [facility] Stop: 08/02/18 17:01 Last Admin: 07/31/18 08:36 Dose: 20 meq Pyridoxine HCl (Vitamin B6) 50 mg PO DAILY [facility] Stop: 09/28/18 08:59 Last Admin: 07/31/18 08:36 Dose: 50 mg General: Alert, Oriented x3, No acute distress HEENT: Mucous membr. moist/pink Neck: Supple, JVD, +2 carotid pulse wo bruit (flat) Cardiovascular: Regular rate, Normal S1, Normal S2 Lungs: Clear to auscultation, Normal air movement Abdomen: Bowel sounds, Soft, Other (no organomegaly) Extremities: Edema Neurological: Normal gait Skin: Other (Warm and dry) Psych/Mental Status: Mental status NL Assessment/Plan - Problem List Patient Problems: All Active Problems LOW BLOOD PRESSURE EPISODE (Acute) - Assessment Assessment: Current Active Problems Problem Status Onset LOW BLOOD PRESSURE EPISODE Acute Patient is awake, alert, calm in no acute distress. BNP and creatinine improved. Dx: Dehydration, Low BP, AKF, CHF, elevated troponins, Multiple Myeloma - Plan Plan: Patient is in IV NS, Levophed, continue with home meds. Patient follow by cardio, awaiting Nepho eval. Will continue to monitor. Nutritional Asmnt/Malnutr-PDOC - Dietary Evaluation Malnutrition Findings (Please click <Entered> for more info): Nutritional Asmnt/Malnutrition Start: 07/30/18 09: 36 Text: Status: Complete Freq: Protocol: Document 07/30/18 09:36 MMDARION (Rec: 07/30/18 09:45 MMDARION RUSSO- FN) Nutritional Asmnt/Malnutrition Patient General Information Nutritional Screening High Risk Diagnosis Dehydration Pertinent Medical Hx/Surgical Hx GUILLIAM BARRE SYNDROME, OSTEONECROSIS, MULTIPLE MYELOMA Subjective Information 3+ edema. Tolerating current diet order Current Diet Order/ Nutrition Support Regular Patient / S.O Not Indicated Pertinent Medications Oscal W/D, Vitamin B12, folate , zofran, protonix, vitamin B6 Pertinent Labs (07/29) TAG 246 (07/30) BUN 71, Cr 3.2, GFR 15, Ca 7.6, BNP 816, Albumin 2.5 Nutritional Hx/Data Height 1.55 m Height (Calculated Centimeters) 154.9 Current Weight (lbs) 74.389 kg Weight (Calculated Kilograms) 74.4 Weight (Calculated Grams) 82872.1 [place] Body Weight 105 % [place] Body Weight 156 Body Mass Index (BMI) 30.9 Recent Weight Change No Weight Status Obese GI Symptoms GI Symptoms None Last BM none noted since admission Difficult in: None Food Allergies No Cultural/Ethnic/Rastafarian Belief none indicated Usual diet at home regular Skin Integrity/Comment: not indicated, no H&P yet or lora score Estimated Nutritional Goals BEE in Kcals: Adj wt of IBW Calories/Kcals/Kg 54.4kg Adj wt Kcals Calculated ~0513-0534 kcal/day (27-32 kcal/kg) Protein: Adj wt of IBW Protein g/k.1-1.3 gm/kg Protein Calculated ~60-70 gm/day Fluid: ml ~2591-5720 ml/day (1 ml/kcal) Nutritional Problem 1. Problem Problem No nutrition diagnosis at this time Intervention/Recommendation Comments 1. Continue regular diet as tolerated by patient. 2. If oral intake is consistently <75% of meals, add Ensure TID. Expected Outcomes/Goals Expected Outcomes/Goals Oral intake >75% of meals, weight stable or trend toward IBW, nutrition related labs WNL F/U MR 08/02-08/04
--- NOTE | 2018-07-31 13:23 | General Progress Note ---
Subjective - Review of Systems Service Date: 07/31/18 Subjective: Patient is awake and alert still hypotension loose stools improved Objective - Results Result Diagrams: 07/31/18 06:00 07/31/18 06:00 Recent Labs: Laboratory Last Values WBC 9.0 Th/cmm (4.8-10.8) D 07/31/18 06:00 RBC 3.09 Mil/cmm (3.80-5.20) L 07/31/18 06:00 Hgb 9.8 gm/dL (12-16) L 07/31/18 06:00 Hct 29.2 % (41.0-60) L 07/31/18 06:00 MCV 94.5 fl (81-100) 07/31/18 06:00 MCH 31.6 pg (27.0-31.0) H 07/31/18 06:00 MCHC Differential 33.4 pg (28.0-36.0) 07/31/18 06:00 RDW 17.7 % (11.5-20.0) 07/31/18 06:00 Plt Count 37 Th/cmm (150-400) L 07/31/18 06:00 MPV 8.0 fl 07/31/18 06:00 Add Manual Diff YES 07/31/18 06:00 Neutrophils % 96.5 % (40.0-80.0) H 07/29/18 15:45 Band Neutrophils % 9 % (0-10) 07/31/18 06:00 Lymphocytes % 1.5 % (20.0-50.0) L 07/29/18 15:45 Monocytes % 1.6 % (2.0-10.0) L 07/29/18 15:45 Eosinophils % 0.4 % (0.0-5.0) 07/29/18 15:45 Basophils % 0.0 % (0.0-2.0) 07/29/18 15:45 Neutrophils (Manual) 80 % (40-80) 07/31/18 06:00 Lymphocytes 4 % (20-50) L 07/31/18 06:00 Monocytes 7 % (2-10) 07/31/18 06:00 Platelet Estimate DECREASED PLATELETS (NORMAL) 07/31/18 06:00 Poikilocytosis 1+ 07/30/18 06:15 PT 12.3 SECONDS (9.5-11.5) H 07/29/18 15:45 INR 1.19 (0.5-1.4) 07/29/18 15:45 PTT (Actin FS) 30.1 SECONDS (26.0-38.0) 07/29/18 15:45 Specimen Source Arterial 07/29/18 18:40 Sample Site Right Brachial 07/29/18 18:40 pH 7.374 (7.35-7.45) 07/29/18 18:40 pCO2 19.2 mmHg (35.0-45.0) L* 07/29/18 18:40 pO2 106.9 mmHg (80.0-100.0) H 07/29/18 18:40 HCO3 11.0 mEq/L (20.0-26.0) L 07/29/18 18:40 Base Excess -11.5 mEq/L (-3.0-3.0) L 07/29/18 18:40 O2 Saturation 97.9 % (92.0-100.0) 07/29/18 18:40 Massimo Test Positive 07/29/18 18:40 Vent Rate NA 07/29/18 18:40 Inspired O2 21 07/29/18 18:40 Tidal Volume NA 07/29/18 18:40 PEEP NA 07/29/18 18:40 Pressure (ins/psv/peep) NA 07/29/18 18:40 Critical Value JG 07/29/18 18:40 Sodium 138 mEq/L (136-145) 07/31/18 06:00 Potassium 3.0 mEq/L (3.5-5.1) L 07/31/18 06:00 Chloride 113 mEq/L (98-107) H 07/31/18 06:00 Carbon Dioxide 13.0 mEq/L (21.0-31.0) L 07/31/18 06:00 Anion Gap 15.0 (7.0-16.0) 07/31/18 06:00 BUN 71 mg/dL (7-25) H 07/31/18 06:00 Creatinine 2.8 mg/dL (0.6-1.2) H 07/31/18 06:00 Est GFR ( Amer) 21.5 ml/min (>90) 07/31/18 06:00 Est GFR (Non-Af Amer) 17.8 ml/min 07/31/18 06:00 BUN/Creatinine Ratio 25.4 07/31/18 06:00 Glucose 74 mg/dL (70-105) 07/31/18 06:00 Whole Bld Lactic Acid 1.75 mmol/L (0.60-1.99) 07/29/18 15:45 Calcium 7.1 mg/dL (8.6-10.3) L 07/31/18 06:00 Total Bilirubin 0.3 mg/dL (0.3-1.0) 07/31/18 06:00 AST 24 U/L (13-39) 07/31/18 06:00 ALT 7 U/L (7-52) 07/31/18 06:00 Alkaline Phosphatase 89 U/L (34-104) 07/31/18 06:00 Ammonia 26 umol/L (16-53) 07/29/18 15:45 Troponin I 0.19 ng/mL (0.01-0.05) H* 07/31/18 06:00 B-Natriuretic Peptide 322.0 pg/mL (5.0-100.0) H 07/31/18 06:00 Total Protein 6.3 gm/dL (6.0-8.3) 07/31/18 06:00 Albumin 2.4 gm/dL (3.7-5.3) L 07/31/18 06:00 Globulin 3.9 gm/dL 07/31/18 06:00 Albumin/Globulin Ratio 0.6 (1.0-1.8) L 07/31/18 06:00 Triglycerides 246 mg/dL (<150) H 07/29/18 15:45 Cholesterol 173 mg/dL (<200) 07/29/18 15:45 LDL Cholesterol Direct 60 mg/dL (75-193) L 07/29/18 15:45 HDL Cholesterol 39 mg/dL (23-92) 07/29/18 15:45 TSH 2.13 uIU/ml (0.34-5.60) 07/29/18 15:45 - Physical Exam Vitals and I&O: Vital Signs Temp 98.2 F 07/31/18 08:00 Pulse 89 07/31/18 09:15 Resp 20 07/31/18 09:00 BP 100/64 07/31/18 09:15 Pulse Ox 98 07/31/18 09:00 Intake & Output 07/30/18 07/31/18 07/31/18 18:59 06:59 18:59 Intake Total 337.909 11.43 Balance 337.909 11.43 Weight (lbs) 68.447 kg Intake: Intake, IV Amount 287.909 11.43 Norepinephrine 4 mg In 287.909 11.43 Dextrose 5% 250 ml @ Titrate IV TITR PRN Rx#: [id number] Oral 50 Other: # Voids 2 # Bowel Movements 1 Stool Characteristics Liquid Liquid Liquid Weight Source Bedscale Active Medications: Current Medications Acetaminophen/Hydrocodone Bitart ([place] 5mg/325mg) 1 tab PO Q6H PRN PRN Reason: MODERATE PAIN Stop: 09/27/18 21:58 Acyclovir (Zovirax) 400 mg PO BID [facility] Stop: 09/28/18 08:59 Last Admin: 07/31/18 08:35 Dose: 400 mg Calcium/Vitamin D (Oscal W/Vitamin D) 1 tab PO BID [facility] Stop: 09/28/18 08:59 Last Admin: 07/31/18 08:35 Dose: 1 tab Cyanocobalamin (Vitamin B12) 1,000 mcg PO DAILY [facility] Stop: 09/28/18 08:59 Last Admin: 07/31/18 08:35 Dose: 1,000 mcg Diphenoxylate HCl/Atropine (Lomotil) 2 tab PO QID PRN PRN Reason: Diarrhea Stop: 09/28/18 16:34 Last Admin: 07/30/18 16:52 Dose: 2 tab Duloxetine HCl (Cymbalta) 60 mg PO DAILY [facility] Stop: 09/28/18 08:59 Last Admin: 07/31/18 08:35 Dose: 60 mg Folic Acid (Folate) 1 mg PO DAILY [facility] Stop: 09/28/18 08:59 Last Admin: 07/31/18 08:35 Dose: 1 mg Gabapentin (Neurontin) 300 mg PO DAILY [facility] Stop: 09/28/18 08:59 Last Admin: 07/31/18 08:36 Dose: 300 mg Norepinephrine Bitartrate 4 mg (/ Dextrose) 254 mls @ 0 mls/hr IV TITR PRN; Protocol PRN Reason: BP MAINTENANCE (PER PROTOCOL) Stop: 09/27/18 20:01 Last Titration: 07/31/18 09:00 Dose: 0 mcg/min, 0 mls/hr Metoprolol Succinate (Toprol Xl) 50 mg PO DAILY [facility] Stop: 09/28/18 08:59 Last Admin: 07/31/18 08:36 Dose: Not Given Ondansetron HCl (Zofran Odt) 8 mg PO Q8H PRN PRN Reason: Nausea / Vomiting Stop: 09/27/18 22:50 Pantoprazole Sodium (Protonix) 40 mg PO DAILY [facility] Stop: 09/28/18 08:59 Last Admin: 07/31/18 08:35 Dose: 40 mg Potassium Chloride (Klor-Con) 20 meq PO BID [facility] Stop: 08/02/18 17:01 Last Admin: 07/31/18 08:36 Dose: 20 meq Pyridoxine HCl (Vitamin B6) 50 mg PO DAILY [facility] Stop: 09/28/18 08:59 Last Admin: 07/31/18 08:36 Dose: 50 mg General: Alert, Oriented x3, No acute distress HEENT: Mucous membr. moist/pink Neck: Supple, JVD, +2 carotid pulse wo bruit (flat) Cardiovascular: Regular rate, Normal S1, Normal S2 Lungs: Clear to auscultation, Normal air movement Abdomen: Bowel sounds, Soft, Other (no organomegaly) Extremities: Edema Neurological: Normal gait Skin: Other (Warm and dry) Psych/Mental Status: Mental status NL Assessment/Plan - Problem List Patient Problems: All Active Problems LOW BLOOD PRESSURE EPISODE (Acute) - Assessment Assessment: Hypotension on Levophed Gastroenteritis secondary to chemotherapy Multiple myeloma Hypertension And deficiency anemia Acute renal failure Thrombocytopenia from chemotherapy - Plan Plan: Continue present management weaned off Levophed Echocardiogram for left ventricular function renal evaluation for acute renal failure Patient off levo fed BUN/creatinine improving Nutritional Asmnt/Malnutr-PDOC - Dietary Evaluation Malnutrition Findings (Please click <Entered> for more info): Nutritional Asmnt/Malnutrition Start: 07/30/18 09: 36 Text: Status: Complete Freq: Protocol: Document 07/30/18 09:36 MMULHERN (Rec: 07/30/18 09:45 MMULHERLeyda RUSSO- [email or web address]) Nutritional Asmnt/Malnutrition Patient General Information Nutritional Screening High Risk Diagnosis Dehydration Pertinent Medical Hx/Surgical Hx GUILLIAM BARRE SYNDROME, OSTEONECROSIS, MULTIPLE MYELOMA Subjective Information 3+ edema. Tolerating current diet order Current Diet Order/ Nutrition Support Regular Patient / S.O Not Indicated Pertinent Medications Oscal W/D, Vitamin B12, folate , zofran, protonix, vitamin B6 Pertinent Labs (07/29) TAG 246 (07/30) BUN 71, Cr 3.2, GFR 15, Ca 7.6, BNP 816, Albumin 2.5 Nutritional Hx/Data Height 1.55 m Height (Calculated Centimeters) 154.9 Current Weight (lbs) 74.389 kg Weight (Calculated Kilograms) 74.4 Weight (Calculated Grams) 12216.1 [place] Body Weight 105 % [place] Body Weight 156 Body Mass Index (BMI) 30.9 Recent Weight Change No Weight Status Obese GI Symptoms GI Symptoms None Last BM none noted since admission Difficult in: None Food Allergies No Cultural/Ethnic/Orthodoxy Belief none indicated Usual diet at home regular Skin Integrity/Comment: not indicated, no H&P yet or lora score Estimated Nutritional Goals BEE in Kcals: Adj wt of IBW Calories/Kcals/Kg 54.4kg Adj wt Kcals Calculated ~0721-0941 kcal/day (27-32 kcal/kg) Protein: Adj wt of IBW Protein g/k.1-1.3 gm/kg Protein Calculated ~60-70 gm/day Fluid: ml ~7202-9302 ml/day (1 ml/kcal) Nutritional Problem 1. Problem Problem No nutrition diagnosis at this time Intervention/Recommendation Comments 1. Continue regular diet as tolerated by patient. 2. If oral intake is consistently <75% of meals, add Ensure TID. Expected Outcomes/Goals Expected Outcomes/Goals Oral intake >75% of meals, weight stable or trend toward IBW, nutrition related labs WNL F/U MR 08/02-08/04
[2018-08-01 04:17] LABS: MEAN CORPUSCULAR HEMOGLOBIN 31.5 pg (27.0-31.0)
[2018-08-01 04:33] LABS: HEMATOCRIT 28.4 % (41.0-60); HEMOGLOBIN 9.5 gm/dL (12-16); MEAN CELL VOLUME 93.8 fl (81-100); MEAN CORPUSCULAR HGB CONC 33.6 pg (28.0-36.0); PLATELET COUNT 33 Th/cmm (150-400); RED BLOOD COUNT 3.03 Mil/cmm (3.80-5.20); RED CELL DISTRIBUTION WIDTH 17.9 % (11.5-20.0)
[2018-08-01 05:39] LABS: ALB/GLOB RATIO 0.6 (1.0-1.8); ALBUMIN 2.4 gm/dL (3.7-5.3); ANION GAP 14.2 (7.0-16.0); BILIRUBIN,TOTAL 0.3 mg/dL (0.3-1.0); CALCIUM SERUM 7.8 mg/dL (8.6-10.3); CARBON DIOXIDE 13.7 mEq/L (21.0-31.0); CREATININE - SERUM 2.2 mg/dL (0.6-1.2); GFR AFRICAN-AMERICAN 28.4 ml/min (>90); GFR NON AFRICAN-AMERICAN 23.5 ml/min; POTASSIUM SERUM 3.9 mEq/L (3.5-5.1); TOTAL PROTEIN,SERUM 6.4 gm/dL (6.0-8.3)
[2018-08-01 07:18] LABS: BAND NEUTROPHILE 0 % (0-10); BASOPHIL 0 % (0-3); EOSINOPHIL 0 % (0-5); LYMPHOCYTE 4 % (20-50); MONOCYTE 2 % (2-10); NEUTROPHILS 94 % (40-80)
[2018-08-01] MEDS: Pantoprazole 40 mg EC Tab PO SCH (08:58)
[2018-08-01] MEDS: Calcium Carb/Vit D 500 mg/200 U Tab PO SCH ×2 (08:58→16:43)
[2018-08-01] MEDS: Potassium Chloride 20 mEq ER Tab PO SCH ×2 (08:58→16:43)
--- NOTE | 2018-08-01 09:00 | Discharge Summary ---
General Discharge Summary - Discharge Summary Date of Admission: 07/29/18 Admitting Diagnosis: Dehydration, Low bp, AKF, CHF, Elevated troponins, Multiple myeloma. Discharge Date: 08/01/18 Discharge Diagnosis: Diarrhea and Vomit, Dehydration, Hypotension, AKF, CHF, Elevated troponis, Multiple Myeloma. Laboratory Findings: Laboratory Results - last 24 hr 08/01/18 08/01/18 08/01/18 04:05 04:05 04:05 WBC 15.0 H D RBC 3.03 L Hgb 9.5 L Hct 28.4 L MCV 93.8 MCH 31.5 H MCHC Differential 33.6 RDW 17.9 Plt Count 33 L MPV 9.0 Add Manual Diff YES Band Neutrophils % 0 Neutrophils (Manual) 94 H Lymphocytes 4 L Monocytes 2 Eosinophils 0 Basophils 0 Sodium 137 Potassium 3.9 Chloride 113 H Carbon Dioxide 13.7 L Anion Gap 14.2 BUN 65 H Creatinine 2.2 H Est GFR ( Amer) 28.4 Est GFR (Non-Af Amer) 23.5 BUN/Creatinine Ratio 29.5 Glucose 73 Calcium 7.8 L Total Bilirubin 0.3 AST 22 ALT 8 Alkaline Phosphatase 92 Troponin I 0.14 H* D Total Protein 6.4 Albumin 2.4 L Globulin 4.0 Albumin/Globulin Ratio 0.6 L Hospital Course: Patient responded to treatment, diarrhea and vomit stopped, BP improved, Kidney function improved, Troponins improved. Treatment: Patient was send to ICU, started in IV NS, Levophed, Zofran, continue with home meds, She was follow by Cardio, and Nephro. Condition at Discharge: Stable Disposition: Discharge/Transfered to SNF Home Medications: Home Medication Medication Instructions Recorded Type Acyclovir 400 mg PO BID 03/20/14 History Cyanocobalamin [Vitamin B12] 1,000 mcg PO DAILY 03/20/14 History Duloxetine Hydrochloride [Cymbalta] 60 mg PO DAILY 03/20/14 History Folic Acid [Folic Acid*] 1 mg PO DAILY 03/20/14 History Gabapentin [Gabapentin*] 300 mg PO TID 03/20/14 History Alpha Lipoic Acid 200 mg PO BID 07/29/18 History Calcium Carb/Vit D 500mg/200U 1 tab PO BID 07/29/18 History [Oscal w/Vitamin D] Febuxostat [Uloric] 80 mg PO DAILY 07/29/18 History Hydrocodone/Acetaminophen 1 each PO Q6H PRN 07/29/18 History [Hydrocodone-Acetamin 5-325 mg] Lidocaine/Prilocaine 1 cre TP PRN PRN 07/29/18 History [Lidocaine-Prilocaine Cream] Omeprazole 40 mg PO DAILY 07/29/18 History Ondansetron [Ondansetron Odt] 8 mg PO Q8H PRN 07/29/18 History Potassium/Calcium/Magnes/Manga 1 each PO PRN PRN 07/29/18 History [Emergen-C Electro Mix Packet] Pyridoxine [Vitamin B6] 50 mg PO DAILY 07/29/18 History Saliva Substitute Comb No.10 1 each MM PRN PRN 07/29/18 History [Neutrasal] Sulfamethoxazole/Trimethoprim 1 tab PO BID 07/29/18 History [Sulfamethoxazole-Tmp Ds Tablet] Cyanocobalamin [Vitamin B12] 1,000 mcg PO DAILY tab 08/01/[address] [Cymbalta] 60 mg PO DAILY ecc 08/01/18 Rx Diphenoxylate/Atropine [Lomotil] 2 tab PO QID PRN tab 08/01/18 Rx Folic Acid [Folate*] 1 mg PO DAILY tab 08/01/18 Rx Inpatient Medications: Current Medications Acetaminophen/Hydrocodone Bitart ([place] 5mg/325mg) 1 tab PO Q6H PRN PRN Reason: MODERATE PAIN Stop: 09/27/18 21:58 Acyclovir (Zovirax) 400 mg PO BID SWAPNA Stop: 09/28/18 08:59 Last Admin: 07/31/18 17:50 Dose: 400 mg Calcium/Vitamin D (Oscal W/Vitamin D) 1 tab PO BID SWAPNA Stop: 09/28/18 08:59 Last Admin: 07/31/18 17:50 Dose: 1 tab Cyanocobalamin (Vitamin B12) 1,000 mcg PO DAILY SWAPNA Stop: 09/28/18 08:59 Last Admin: 07/31/18 08:35 Dose: 1,000 mcg Diphenoxylate HCl/Atropine (Lomotil) 2 tab PO QID PRN PRN Reason: Diarrhea Stop: 09/28/18 16:34 Last Admin: 07/30/18 16:52 Dose: 2 tab Duloxetine HCl (Cymbalta) 60 mg PO DAILY SWAPNA Stop: 09/28/18 08:59 Last Admin: 07/31/18 08:35 Dose: 60 mg Folic Acid (Folate) 1 mg PO DAILY SWAPNA Stop: 09/28/18 08:59 Last Admin: 07/31/18 08:35 Dose: 1 mg Gabapentin (Neurontin) 300 mg PO DAILY SWAPNA Stop: 09/28/18 08:59 Last Admin: 07/31/18 08:36 Dose: 300 mg Norepinephrine Bitartrate 4 mg (/ Dextrose) 254 mls @ 0 mls/hr IV TITR PRN; Protocol PRN Reason: BP MAINTENANCE (PER PROTOCOL) Stop: 09/27/18 20:01 Last Titration: 07/31/18 09:00 Dose: 0 mcg/min, 0 mls/hr Metoprolol Succinate (Toprol Xl) 50 mg PO DAILY [facility] Stop: 09/28/18 08:59 Last Admin: 07/31/18 08:36 Dose: Not Given Ondansetron HCl (Zofran Odt) 8 mg PO Q8H PRN PRN Reason: Nausea / Vomiting Stop: 09/27/18 22:50 Pantoprazole Sodium (Protonix) 40 mg PO DAILY SWAPNA Stop: 09/28/18 08:59 Last Admin: 07/31/18 08:35 Dose: 40 mg Potassium Chloride (Klor-Con) 20 meq PO BID [facility] Stop: 08/02/18 17:01 Last Admin: 07/31/18 17:50 Dose: 20 meq Pyridoxine HCl (Vitamin B6) 50 mg PO DAILY [facility] Stop: 09/28/18 08:59 Last Admin: 07/31/18 08:36 Dose: 50 mg Activity: As Tolerated Discharge Diet: 2 Gram Sodium Consults and Follow-Up: not on staff,PCP is [Primary Care Provider] - CLARIBEL RAMACHANDRAN [Other] Consulting Speciality: Cardiac, Renal, Oncology Instructions: Hypotension, [id number], Dehydration, Adult, [id number]
--- NOTE | 2018-08-01 12:10 | General Progress Note ---
Subjective - Review of Systems Service Date: 08/01/18 Subjective: Patient is awake and alert no diarrhea Objective - Results Result Diagrams: 08/01/18 04:05 08/01/18 04:05 Recent Labs: Laboratory Last Values WBC 15.0 Th/cmm (4.8-10.8) H D 08/01/18 04:05 RBC 3.03 Mil/cmm (3.80-5.20) L 08/01/18 04:05 Hgb 9.5 gm/dL (12-16) L 08/01/18 04:05 Hct 28.4 % (41.0-60) L 08/01/18 04:05 MCV 93.8 fl (81-100) 08/01/18 04:05 MCH 31.5 pg (27.0-31.0) H 08/01/18 04:05 MCHC Differential 33.6 pg (28.0-36.0) 08/01/18 04:05 RDW 17.9 % (11.5-20.0) 08/01/18 04:05 Plt Count 33 Th/cmm (150-400) L 08/01/18 04:05 MPV 9.0 fl 08/01/18 04:05 Add Manual Diff YES 08/01/18 04:05 Neutrophils % 96.5 % (40.0-80.0) H 07/29/18 15:45 Band Neutrophils % 0 % (0-10) 08/01/18 04:05 Lymphocytes % 1.5 % (20.0-50.0) L 07/29/18 15:45 Monocytes % 1.6 % (2.0-10.0) L 07/29/18 15:45 Eosinophils % 0.4 % (0.0-5.0) 07/29/18 15:45 Basophils % 0.0 % (0.0-2.0) 07/29/18 15:45 Neutrophils (Manual) 94 % (40-80) H 08/01/18 04:05 Lymphocytes 4 % (20-50) L 08/01/18 04:05 Monocytes 2 % (2-10) 08/01/18 04:05 Eosinophils 0 % (0-5) 08/01/18 04:05 Basophils 0 % (0-3) 08/01/18 04:05 Platelet Estimate DECREASED PLATELETS (NORMAL) 07/31/18 06:00 Poikilocytosis 1+ 07/30/18 06:15 PT 12.3 SECONDS (9.5-11.5) H 07/29/18 15:45 INR 1.19 (0.5-1.4) 07/29/18 15:45 PTT (Actin FS) 30.1 SECONDS (26.0-38.0) 07/29/18 15:45 Specimen Source Arterial 07/29/18 18:40 Sample Site Right Brachial 07/29/18 18:40 pH 7.374 (7.35-7.45) 07/29/18 18:40 pCO2 19.2 mmHg (35.0-45.0) L* 07/29/18 18:40 pO2 106.9 mmHg (80.0-100.0) H 07/29/18 18:40 HCO3 11.0 mEq/L (20.0-26.0) L 07/29/18 18:40 Base Excess -11.5 mEq/L (-3.0-3.0) L 07/29/18 18:40 O2 Saturation 97.9 % (92.0-100.0) 07/29/18 18:40 Massimo Test Positive 07/29/18 18:40 Vent Rate NA 07/29/18 18:40 Inspired O2 21 07/29/18 18:40 Tidal Volume NA 07/29/18 18:40 PEEP NA 07/29/18 18:40 Pressure (ins/psv/peep) NA 07/29/18 18:40 Critical Value JG 07/29/18 18:40 Sodium 137 mEq/L (136-145) 08/01/18 04:05 Potassium 3.9 mEq/L (3.5-5.1) 08/01/18 04:05 Chloride 113 mEq/L (98-107) H 08/01/18 04:05 Carbon Dioxide 13.7 mEq/L (21.0-31.0) L 08/01/18 04:05 Anion Gap 14.2 (7.0-16.0) 08/01/18 04:05 BUN 65 mg/dL (7-25) H 08/01/18 04:05 Creatinine 2.2 mg/dL (0.6-1.2) H 08/01/18 04:05 Est GFR ( Amer) 28.4 ml/min (>90) 08/01/18 04:05 Est GFR (Non-Af Amer) 23.5 ml/min 08/01/18 04:05 BUN/Creatinine Ratio 29.5 08/01/18 04:05 Glucose 73 mg/dL (70-105) 08/01/18 04:05 Whole Bld Lactic Acid 1.75 mmol/L (0.60-1.99) 07/29/18 15:45 Calcium 7.8 mg/dL (8.6-10.3) L 08/01/18 04:05 Total Bilirubin 0.3 mg/dL (0.3-1.0) 08/01/18 04:05 AST 22 U/L (13-39) 08/01/18 04:05 ALT 8 U/L (7-52) 08/01/18 04:05 Alkaline Phosphatase 92 U/L (34-104) 08/01/18 04:05 Ammonia 26 umol/L (16-53) 07/29/18 15:45 Troponin I 0.14 ng/mL (0.01-0.05) H* D 08/01/18 04:05 B-Natriuretic Peptide 322.0 pg/mL (5.0-100.0) H 07/31/18 06:00 Total Protein 6.4 gm/dL (6.0-8.3) 08/01/18 04:05 Albumin 2.4 gm/dL (3.7-5.3) L 08/01/18 04:05 Globulin 4.0 gm/dL 08/01/18 04:05 Albumin/Globulin Ratio 0.6 (1.0-1.8) L 08/01/18 04:05 Triglycerides 246 mg/dL (<150) H 07/29/18 15:45 Cholesterol 173 mg/dL (<200) 07/29/18 15:45 LDL Cholesterol Direct 60 mg/dL (75-193) L 07/29/18 15:45 HDL Cholesterol 39 mg/dL (23-92) 07/29/18 15:45 TSH 2.13 uIU/ml (0.34-5.60) 07/29/18 15:45 - Physical Exam Vitals and I&O: Vital Signs Temp 97.6 F 08/01/18 06:00 Pulse 94 08/01/18 08:59 Resp 20 08/01/18 06:00 BP 114/64 08/01/18 08:59 Pulse Ox 95 08/01/18 06:00 Intake & Output 07/31/18 08/01/18 08/01/18 18:59 06:59 18:59 Intake Total 11.43 610 Balance 11.43 610 Weight (lbs) 70.398 kg Intake: Intake, IV Amount 11.43 Norepinephrine 4 mg In 11.43 Dextrose 5% 250 ml @ Titrate IV TITR PRN Rx#: [id number] Oral 610 Other: # Voids 1 Stool Characteristics Liquid Liquid Weight Source Bedscale Active Medications: Current Medications Acetaminophen/Hydrocodone Bitart ([place] 5mg/325mg) 1 tab PO Q6H PRN PRN Reason: MODERATE PAIN Stop: 09/27/18 21:58 Acyclovir (Zovirax) 400 mg PO BID [facility] Stop: 09/28/18 08:59 Last Admin: 08/01/18 08:59 Dose: 400 mg Calcium/Vitamin D (Oscal W/Vitamin D) 1 tab PO BID [facility] Stop: 09/28/18 08:59 Last Admin: 08/01/18 08:58 Dose: 1 tab Cyanocobalamin (Vitamin B12) 1,000 mcg PO DAILY [facility] Stop: 09/28/18 08:59 Last Admin: 08/01/18 08:59 Dose: 1,000 mcg Diphenoxylate HCl/Atropine (Lomotil) 2 tab PO QID PRN PRN Reason: Diarrhea Stop: 09/28/18 16:34 Last Admin: 07/30/18 16:52 Dose: 2 tab Duloxetine HCl (Cymbalta) 60 mg PO DAILY [facility] Stop: 09/28/18 08:59 Last Admin: 08/01/18 08:59 Dose: 60 mg Folic Acid (Folate) 1 mg PO DAILY [facility] Stop: 09/28/18 08:59 Last Admin: 08/01/18 08:58 Dose: 1 mg Gabapentin (Neurontin) 300 mg PO DAILY [facility] Stop: 09/28/18 08:59 Last Admin: 08/01/18 08:58 Dose: 300 mg Norepinephrine Bitartrate 4 mg (/ Dextrose) 254 mls @ 0 mls/hr IV TITR PRN; Protocol PRN Reason: BP MAINTENANCE (PER PROTOCOL) Stop: 09/27/18 20:01 Last Titration: 07/31/18 09:00 Dose: 0 mcg/min, 0 mls/hr Metoprolol Succinate (Toprol Xl) 50 mg PO DAILY [facility] Stop: 09/28/18 08:59 Last Admin: 08/01/18 08:59 Dose: Not Given Ondansetron HCl (Zofran Odt) 8 mg PO Q8H PRN PRN Reason: Nausea / Vomiting Stop: 09/27/18 22:50 Pantoprazole Sodium (Protonix) 40 mg PO DAILY [facility] Stop: 09/28/18 08:59 Last Admin: 08/01/18 08:58 Dose: 40 mg Potassium Chloride (Klor-Con) 20 meq PO BID [facility] Stop: 08/02/18 17:01 Last Admin: 08/01/18 08:58 Dose: 20 meq Pyridoxine HCl (Vitamin B6) 50 mg PO DAILY [facility] Stop: 09/28/18 08:59 Last Admin: 08/01/18 08:58 Dose: 50 mg General: Alert, Oriented x3, No acute distress HEENT: Mucous membr. moist/pink Neck: Supple, JVD, +2 carotid pulse wo bruit (flat) Cardiovascular: Regular rate, Normal S1, Normal S2 Lungs: Clear to auscultation, Normal air movement Abdomen: Bowel sounds, Soft, Other (no organomegaly) Extremities: Edema Neurological: Normal gait Skin: Other (Warm and dry) Psych/Mental Status: Mental status NL Assessment/Plan - Problem List Patient Problems: All Active Problems LOW BLOOD PRESSURE EPISODE (Acute) - Assessment Assessment: Hypotension on Levophed Gastroenteritis secondary to chemotherapy Multiple myeloma Hypertension And deficiency anemia Acute renal failure Thrombocytopenia from chemotherapy - Plan Plan: Continue present management weaned off Levophed Echocardiogram for left ventricular function renal evaluation for acute renal failure Patient off levo fed BUN/creatinine improving Patient clinically stable will do physical therapy prior to discharge Nutritional Asmnt/Malnutr-PDOC - Dietary Evaluation Malnutrition Findings (Please click <Entered> for more info): Nutritional Asmnt/Malnutrition Start: 07/30/18 09: 36 Text: Status: Complete Freq: Protocol: Document 07/30/18 09:36 [email or web address] (Rec: 07/30/18 09:45 [email or web address] [id number]) Nutritional Asmnt/Malnutrition Patient General Information Nutritional Screening High Risk Diagnosis Dehydration Pertinent Medical Hx/Surgical Hx GUILLIAM BARRE SYNDROME, OSTEONECROSIS, MULTIPLE MYELOMA Subjective Information 3+ edema. Tolerating current diet order Current Diet Order/ Nutrition Support Regular Patient / S.O Not Indicated Pertinent Medications Oscal W/D, Vitamin B12, folate , zofran, protonix, vitamin B6 Pertinent Labs (07/29) TAG 246 (07/30) BUN 71, Cr 3.2, GFR 15, Ca 7.6, BNP 816, Albumin 2.5 Nutritional Hx/Data Height 1.55 m Height (Calculated Centimeters) 154.9 Current Weight (lbs) 74.389 kg Weight (Calculated Kilograms) 74.4 Weight (Calculated Grams) 78577.1 [place] Body Weight 105 % [place] Body Weight 156 Body Mass Index (BMI) 30.9 Recent Weight Change No Weight Status Obese GI Symptoms GI Symptoms None Last BM none noted since admission Difficult in: None Food Allergies No Cultural/Ethnic/Jew Belief none indicated Usual diet at home regular Skin Integrity/Comment: not indicated, no H&P yet or lora score Estimated Nutritional Goals BEE in Kcals: Adj wt of IBW Calories/Kcals/Kg 54.4kg Adj wt Kcals Calculated ~6582-6221 kcal/day (27-32 kcal/kg) Protein: Adj wt of IBW Protein g/k.1-1.3 gm/kg Protein Calculated ~60-70 gm/day Fluid: ml ~4835-4752 ml/day (1 ml/kcal) Nutritional Problem 1. Problem Problem No nutrition diagnosis at this time Intervention/Recommendation Comments 1. Continue regular diet as tolerated by patient. 2. If oral intake is consistently <75% of meals, add Ensure TID. Expected Outcomes/Goals Expected Outcomes/Goals Oral intake >75% of meals, weight stable or trend toward IBW, nutrition related labs WNL F/U MR 08/02-08/04
== END 2018-08-01 20:40 | DRG 393 ==
LOC: ER 15:19 → ICU 18:00
PROVIDERS: ADMIT General Practice; ATTEND General Practice
DX: K52.1 Toxic gastroenteritis and colitis (principal); E43 Unspecified severe protein-calorie malnutrition; N17.9 Acute kidney failure, unspecified; C90.00 Multiple myeloma not having achieved remission; I95.9 Hypotension, unspecified; E86.0 Dehydration; D69.59 Other secondary thrombocytopenia; I50.9 Heart failure, unspecified; I11.0 Hypertensive heart disease with heart failure; T45.1X5A Adverse effect of antineoplastic and immunosuppressive drugs, initial encounter; Y92.89 Other specified places as the place of occurrence of the external cause; M81.0 Age-related osteoporosis without current pathological fracture; D50.9 Iron deficiency anemia, unspecified; Z68.29 Body mass index [BMI] 29.0-29.9, adult
CPT/HCPCS: 36415-UA; 71045-TC; 80053-TC; 80061-TC; 82140-TC; 82803-TC; 83605; 83880-TC; 84443-TC; 84484-TC; 85007-TC; 85025-TC; 85610-TC; 85730-TC; 93005; 97530; J7030; X6452; Z7502; Z7610